=== PATIENT | female | born 2005 | race Caucasian/White ===

== ENCOUNTER 2024-09-12 06:44 | Outpatient (REF) | payer BC, SELFPAY ==
--- NOTE | ~2024-09-12 | US_ITS ---
CLINICAL HISTORY: LEFT CALF PAIN AND SWELLING, R O DVT Left lower extremity duplex venous Doppler Comparison: None Technique: Grayscale/Color/Duplex Doppler sonographic evaluation of the deep venous system within the left lower extremity. Findings: Left lower extremity Common femoral vein: Patent bilaterally CFV/GSV junction: Patent Femoral vein: Patent Popliteal vein: Patent Infrapopliteal veins: Patent where seen Soft tissue: No focal abnormality Impression: 1. Negative for left lower extremity DVT. 2. No Barrios's cyst This document has been electronically signed by: Arturo Mancini MD on 09/12/2024 10:41:44
--- OUTSIDE RECORDS SUMMARY | 2024-09-12 06:48 | XMS_ITS | Clinical Summary ---
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 Name Role Phone Unavailable Primary Care Provider Unavailabl e Allergies Active Allergy Reactions Criticality Noted Date Comments Egg-Derived Products Hives High 08/03/2017 Garlic Low 01/03/2019 Testing only; eats it OK Onion Low 01/03/2019 Testing only eats it fine Peanuts (Food) Hives High 08/03/2017 Soybean Oil Low 01/03/2019 Per senior project coordinator, keep eating through it Tree Nuts (Food) [facility] High 01/03/2019 Medications fluticasone HFA (Flovent HFA) 44 MCG/ACT inhalerIndicatio ns:Mild persistent asthma with acute exacerbation Inhale 2 puffs 2 (two) times a day. Rinse mouth with water after use, do not swallow. 1 Units 3 1 Active EPINEPHrine 0.3 MG/0.3ML injection syringeIndicatio ns:Multiple food allergies Inject 0.3 mL (0.3 mg total) into the muscle Once PRN for anaphylaxis for up to 1 dose. 4 each 1 2 Active albuterol HFA 108 (90 Base) MCG/ACT inhalerIndicatio ns:Mild persistent asthma without complication TAKE 2 PUFFS BY MOUTH EVERY 4 HOURS NEEDED FOR WHEEZE 1 Units 1 3 Active Active Problems Problem Noted Date Diagnosed Date Multiple food allergies 01/27/2021 Vision impairment 01/12/2020 BMI greater than 95% for age [Z68.54] 01/12/2020 Mild intermittent asthma without complication Non-seasonal allergic rhinit is due to animal hair and dander 03/06/2017 Food allergy, peanut 08/20/2015 Resolved Problems Problem Noted Date Diagnosed Date Resolved Date Fever 08/03/2017 01/03/2019 Food allergy 03/06/2017 01/27/2021 Skin-picking disorder 03/06/20172018 Postinflammatory hyperpigmentation 03/06/2017 12/31/2018 BMI (body mass index), pedia tric, 85% to less than 95% for age 0308/20/2015 12/31/2018 Immunizations Immunization Administration Dates Next Due DTaP 01/01/2009, 5,2003, 004,2003 H1N1 06/22/2009 HPV Vaccine 9 Valent 04/03/2018,10/02/2017 Hep A, ped/adol 10/02/2017,08/29/2016 Hep B, ped/adol 02/10/2004,2003,2003 Hib (PRP-OMP) 04/28/2004, 4,2003, 004 IPV 02/09/2009, 5,2003, 004 Influenza, injectable, quadrivalent 05/03/2020,1 07/13/2018,04/03/2018 Influenza, injectable, trivalent 017,08/19/2015,03/11/2014, 011,03/20/2009 MMR 02/09/2009,04/28/2004 Meningococcal B Bexsero 01/30/2023,01/21/2022 Meningococcal Conj (Menveo) [id number] 01/10/2020,07/2015 Pneumococcal Conjugate 04/28/2004,2003,2003, 004 Tdap 08/13/2014 Varicella 01/01/2009,08/02/2004 Family History Medical History Relation Name Comments No Known Problems Brother Johnnie Cholecystitis Father Hyperlipidemia Father Hypertension Father Transient ischemic attack Father No Known Problems Father's Brother No Known Problems Father's Sister Diabetes Maternal Grandfather Hyperlipidemia Maternal Grandfather Hypertension Maternal Grandfather Kidney disease Maternal Grandfather Kidney failure Maternal Grandfather stage 4 Cancer Maternal Grandmother mass re moved 09/2018 Cancer (Adult Onset) Maternal Grandmother Diabetes Maternal Grandmother Hyperlipidemia Maternal Grandmother Hypertension Maternal Grandmother Allergic rhinitis Mother Irina Asthma Mother Irina Diabetes Mother's Sister Heart disease Mother's Sister Heart disease (Premature) Mother's Sister Obesity Mother's Sister Cancer Paternal Grandfather Diabetes Paternal Grandmother Hyperlipidemia Paternal Grandmother Hypertension Paternal Grandmother Relation Name Status Comments Brother Johnnie Alive Father Alive Father: TIA, HT N, emiliana lipid Father's Brother Alive Father's Sister Alive Maternal Grandfather htn lip id diabetes Maternal Grandmother Alive htn lip id diabetes Mother Irina Alive Mother: allergi es, asthma Mother's Sister Alive Paternal Grandfather cancer Paternal Grandmother Alive htn lip id diabetes Social History Tobacco Use Types Packs/Day Years Used Date Smoking Tobacco: Never Smokeless Tobacco: Never Tobacco Cessation:Counseling Given: No Comments:never smoker Alcohol Use Standard Drinks/Week Comments No 0 (1 standard drink = 0.6 oz pur e alcohol) Hunger/Food Answer Date Recorded In the last 12 months, did y ou or your family ever eat less than you felt you should because there wasn't enough money for food? No 01/27/2023 Stable Housing Answer Date Recorded Are you worried that in the next 2 months you may not have stable housing? No 01/27/2023 Transportation Concerns Answer Date Rec orded In the last 12 months, have you or your family ever had to go without healthcare because you didn't have a way to get there? No 01/27/2023 Hazards in Home Answer Date Recorded Think about the place you li ve. Do you have problems with any of the following? Pests (mice or roaches), mold, no/not working smoke detectors, water leaks, no window guards. No 2022 Financing Utilities Answer Date Recorde d In the last 12 months, has t he electric, gas, oil, or water company threatened to shut off your services in your home? No 01/27/2023 Safety at Home Answer Date Recorded Are you or your family worried about feeling saf e in your home? No 01/27/2023 Outside Support Answer Date Recorded Do you feel that you need mo re support from other people or programs to help you care for yourself or your family? No 01/27/2023 Understanding Health Concerns Answer Da te Recorded Do you need help understandi ng your or your child's healthcare needs (diagnosis, medications, plan, etc.)? No 01/27/2023 Financing Health Concerns Answer Date R ecorded In the last 12 months, was t here a time when your child needed to see a doctor or get medications or supplies but could not because of cost? No 01/27/2023 Missing School or Work Answer Date Jassi rded Did you or your child miss s chool or work because of a health problem that could have been avoided? No 01/27/2023 Comments Unknown Sex and Gender Information Value Date Recorded Sex Assigned at Not on file Legal Sex Female 8:19 PM EST Gender Identity Not on file Sexual Orientation Not on file Last Filed Vital Signs Vital Sign Reading Time Taken Comments Blood Pressure 118/70 01/30/2023 1:56 PM EDT Pulse 89 01/30/2023 1:56 PM EDT Temperature 37.1 ??C (98.8 ??F) 07/16/2018 3:50 PM ES T Respiratory Rate - - Oxygen Saturation 99% 01/30/2023 1:56 PM EDT Inhaled Oxygen Concentration - - Weight 105 kg (230 lb 9.6 oz) 01/30/2023 1:56 PM EDT Height 169.9 cm (5' 6.88 ) 01/30/2023 1:56 PM ED T Body Mass Index 36.25 01/30/2023 1:56 PM EDT Plan of Treatment Health Maintenance Due Date Last Done Comments Influenza Vaccines (#1) 2024 05/03/20 20, 05/13/2019, 04/03/2018, Additional history exists COVID-19 Vaccine (2023-2 5 season) 2024 03/26/2022, 06/29/2021, 11/24/2020, Additional history exists DTaP,Tdap,and Td Vaccines (7 - Td or Tdap) 08/13/2024 08/13/2014, 01/01/2009, 10/14/2004, Additional history exists Hepatitis B Vaccines Completed 02/10/2004, 2003, 2003 HIB Vaccines Completed 04/28/2004, 10/17, 2003, Additional history exists Pneumococcal Vaccine Completed 04/28/2004, 02/10/2004, 2003, Additional history exists Varicella Vaccines Completed 01/01/2009, 08/02/2004 IPV Vaccines Completed 02/09/2009, 09/18, 2003, Additional history exists MMR Vaccines Completed 02/09/2009, 04/28/2004 Hepatitis A Vaccines Completed 10/02/2017, 08/30/19 17 HPV Vaccines Completed 04/03/2018, 10/02/2017 Meningococcal Vaccine Completed 01/10/2020, 016 Men B Vaccine Completed 01/30/2023, 01/21/2022
--- OUTSIDE RECORDS SUMMARY | 2024-09-12 06:48 | XMS_ITS | Encounter Summary ---
Author Organization [facility] Address [address] [place] [id number] Phone Care Team Providers Care Photographer'S Model Name Role Phone Fatoumata Cox MD Primary Care Provider [phone] Encounter Details Date Type Department Care Team (Late st Contact Info) Description 01/25/2017 Conversion Encounter [facility] [address] [place] [id number] Cherri Jason MD Social History Tobacco Use Types Packs/Day Years Used Date Smoking Tobacco: Never Comments:never smoker Comments Unknown Sex and Gender Information Value Date Recorded Sex Assigned at Not on file Legal Sex Female 8:19 PM EST Gender Identity Not on file Sexual Orientation Not on file documented as of this encounter Plan of Treatment Not on file documented as of this encounter Visit Diagnoses Not on filedocumented in this encounter Care Teams Photographer'S Model Relationship Specialty Start Date End Date Fatoumata Cox MD [address] [place] [id number] PCP - General Pediatrics 06/27/19 06/25/23 documented as of this encounter
== END 2024-09-12 06:45 | disposition home or self-care (01) ==
LOC: HO.UMASIMG 06:44
PROVIDERS: Visit Provider Family Medicine
DX: R60.0 Localized edema (principal)
CPT/HCPCS: 93971

== ENCOUNTER → 2024-09-12 09:30 | Outpatient (BNV) | payer BC, SELFPAY | PROVIDERS: Visit Provider Radiology Diagnostic Radiology | DX: M79.662 Pain in left lower leg (principal) | CPT/HCPCS: 93971 ==

== ENCOUNTER 2024-09-24 06:35 | Outpatient (REF) | payer BC, SELFPAY ==
--- NOTE | ~2024-09-24 | US_ITS ---
CLINICAL HISTORY: ELEVATED LFTS US abdomen complete Comparison: None Findings: The visualized pancreas is normal. The aorta and inferior vena cava are normal caliber. The liver is normal in size and echotexture. There is no intrahepatic bile duct dilatation. The common duct is 1.6 mm in diameter. The gallbladder is normal. There is no sonographic Kumari sign. The main portal vein is antegrade. The right kidney is 10.0 cm in length. The left kidney is 9.3 cm in length. The spleen is normal. No ascites. IMPRESSION: 1. Normal complete abdominal ultrasound. This document has been electronically signed by: Bruce Ross MD on 09/24/2024 13:14:47
--- OUTSIDE RECORDS SUMMARY | 2024-09-24 06:38 | XMS_ITS | Encounter Summary ---
Author Organization [facility] Address [address] [place] [id number] Phone Care Team Providers Care Net Application Architect Name Role Phone Fatoumata Cox MD Primary Care Provider [phone] Encounter Details Date Type Department Care Team (Late st Contact Info) Description 01/25/2017 Conversion Encounter [facility] [address] [place] [address] Cherri Jason MD Social History Tobacco Use [...] on filedocumented in this encounter Care Teams Net Application Architect Relationship Specialty Start Date End Date Fatoumata Cox MD [address] [place] [address] PCP - General Pediatrics 06/27/19 06/25/23 documented as of this encounter
--- OUTSIDE RECORDS SUMMARY | 2024-09-24 06:38 | XMS_ITS | Clinical Summary ---
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
== END 2024-09-24 06:36 | disposition home or self-care (01) ==
LOC: HO.UMASIMG 06:35
PROVIDERS: Visit Provider Family Medicine
DX: R74.01 Elevation of levels of liver transaminase levels (principal); R60.0 Localized edema
CPT/HCPCS: 76700

== ENCOUNTER → 2024-09-24 08:30 | Outpatient (BNV) | payer BC, SELFPAY | PROVIDERS: Visit Provider Nuclear Medicine | DX: R74.01 Elevation of levels of liver transaminase levels (principal) | CPT/HCPCS: 76700 ==